=== PATIENT | male | born 1995 | race Caucasian/White ===

== ENCOUNTER 2018-04-19 03:35 | Emergency (ER) | payer OTHER ==
[~2018-04-19] VITALS: Ht 177.8 cm; Wt 62.0 kg
[2018-04-19] MEDS ORDERED: SODIUM CHLORIDE FLUSH 10ML SYR IVF ONE (04:00)
[2018-04-19] MEDS ORDERED: MORPHINE SULFATE 4 MG/ML, 1ML IVPush PRN (04:00)
[2018-04-19] MEDS ORDERED: PROMETHAZINE 25 MG/ML, 1ML IM ONE (04:00)
[2018-04-19] MEDS ORDERED: SODIUM CHLORIDE 0.9% 1,000ML IVBOLUS ONE (04:00)
[2018-04-19] MEDS ORDERED: ONDANSETRON 2MG/ML, 2ML IVPush ONE (04:00)
[2018-04-19] MEDS ORDERED: FAMOTIDINE 20 MG/2 ML IVP ONE (04:00)
[2018-04-19] MEDS ORDERED: PROMETHAZINE 25 MG/ML, 1ML ONE (04:02)
[2018-04-19] MEDS ORDERED: FAMOTIDINE 20 MG/2 ML ONE (04:02)
[2018-04-19] MEDS ORDERED: ONDANSETRON 2MG/ML, 2ML ONE ×2 (04:02→05:05)
[2018-04-19] MEDS ORDERED: MORPHINE SULFATE 4 MG/ML, 1ML ONE (04:02)
[2018-04-19 04:26] LABS: BASOPHILS # (AUTO) 0.02 x10^3/uL (0-0.3); BASOPHILS % (AUTO) 0 % (0-1); EOSINOPHILS # (AUTO) 0.02 x10^3/uL (0-0.8); EOSINOPHILS % (AUTO) 0 % (1-7); LYMPHOCYTES % (AUTO) 13 % (22-44); MD NO; MEAN CORPUSCULAR HGB CONC 34.4 g/dL (33.2-36.2); MEAN CORPUSCULAR VOLUME 84.5 fL (81-97); MEAN PLATELET VOLUME 8.4 fL (7.4-10.4); MONOCYTES # (AUTO) 0.44 x10^3/uL (0-1.4); MONOCYTES % (AUTO) 5 % (2-9); NEUTROPHILS # (AUTO) 8.07 x10^3/uL (1.8-8.0); NEUTROPHILS % (AUTO) 82 % (42-75); PLATELET COUNT 302 x10^3/uL (130-400); RED BLOOD COUNT 5.33 x10^6/uL (4.38-5.82); RED CELL DISTRIBUTION WIDTH 12.8 % (9.4-14.8)
[2018-04-19 04:48] LABS: ALBUMIN 4.4 g/dL (3.4-5.0); ANION GAP 14 mmol/L (5-15); CALCIUM 8.9 mg/dL (8.5-10.1); CHLORIDE 112 mmol/L (98-107)
[2018-04-19 04:52] LABS: ALANINE AMINOTRANSFERASE 31 U/L (12-78); ALKALINE PHOSPHATASE 61 U/L (45-117); BILIRUBIN,TOTAL 0.4 mg/dL (0.2-1.0); CREATININE 0.85 mg/dL (0.7-1.3); TOTAL PROTEIN 7.7 g/dL (6.4-8.2)
[2018-04-19] MEDS ORDERED: METOCLOPRAMIDE 5 MG/ML, 2ML IV ONE (05:00)
[2018-04-19] MEDS ORDERED: METOCLOPRAMIDE 5 MG/ML, 2ML ONE ×2 (05:05→05:07)
[2018-04-19 05:25] VITALS: BP 132/86
== END 2018-04-19 05:33 | disposition home or self-care (01) ==
LOC: ED 05:00
DX: K52.9 Noninfective gastroenteritis and colitis, unspecified (principal); E86.0 Dehydration
CPT/HCPCS: 36415; 80053; 83690; 85025; 96372; 96374; 96375; 99284; J2405; J2550; J7030; S0028